=== PATIENT | female | born 1980 | race Caucasian/White ===

== ENCOUNTER 2017-03-05 12:28 | Day surgery (SDC) | payer BC ==
[2017-03-04 14:40] LABS: WBC (NOT ORDERED) (RFLEX) 0 (0-5)
[2017-03-04 15:01] LABS: BASOPHILS 0 %; EOSINOPHILS 0.5 %; EOSINOPHILS ABSOLUTE 0.02 10/3/uL (0.0-0.53); HEMATOCRIT 37.9 % (36.0-48.0); HEMOGLOBIN 12.6 g/dL (12.0-16.0); IMMATURE GRANULOCYTES 0.3 %; IMMATURE GRANULOCYTES ABSOLUTE 0.01 10/3/uL (0.0-0.11); LYMPHOCYTES 22.1 %; LYMPHOCYTES ABSOLUTE 0.83 10/3/uL (0.67-4.30); MEAN CORPUS HGB CONC 33.2 g/dL (32.0-36.0); MEAN CORPUSCULAR HEMOGLOB 28.4 pg (26.0-34.0); MEAN CORPUSCULAR VOLUME 85.4 fL (80-100); MONOCYTES 15.2 %; MONOCYTES ABSOLUTE 0.57 10/3/uL (0.21-1.20); NEUTROPHILS 61.9 %; NEUTROPHILS ABSOLUTE 2.33 10/3/uL (2.02-8.40); PLATELET COUNT 223 10/3/uL (150-400); RBC DISTRIBUTION WIDTH 13.1 % (12.0-16.0); RED CELL COUNT 4.44 10/6/uL (4.0-5.6)
[2017-03-04 15:05] LABS: MANUAL DIFF NO %; WHITE BLOOD CELLS 3.8 10/3/uL (4.5-10.5)
[2017-03-04 16:33] LABS: ASCORBIC ACID (UR NOT ORDER) NEG (NEG); BILIRUBIN, URINE NEGATIVE (NEG); KETONE, URINE NEGATIVE (NEG); LEUKOCYTE ESTERASE(NOT OR NEG (NEG)
--- NOTE | ~2017-03-05 | OP ---
Record Of Operation [facility] [address] [place]. [address] NAME: PEBBLES WRIGHT : [birth year] STATUS : [facility]#: [id number] AGE: 36 ADM/REG DATE : 03/05/17 MR#: [id number] REPORT SERV DATE: 03/19/17 DICTATED BY: ALMA ROSA HOFFMAN DATE: 03/09/17 REPORT STATUS : Draft TRANSCRIBED BY: MODL DATE: 03/09/17 DATE OF PROCEDURE: 03/05/2017 PREOPERATIVE DIAGNOSIS: Dysmenorrhea, pelvic pain. OPERATION PERFORMED: Diagnostic laparoscopy, attempted dilation and curettage. SURGEON: Alma Rosa Hoffman D.O. FINAL DIAGNOSES: Pelvic congestion syndrome, cervical stenosis. DESCRIPTION OF OPERATION PERFORMED: The patient was taken to the operating room, prepped and draped in usual manner. General type anesthesia was used. Both abdominal and vaginal prep was performed. The cervix was grasped with a tenaculum. Attempt was made to dilate the cervix without puncturing the uterus. The cervical dilatation was not accomplished. The acorn was attached to the cervix. The abdomen was filled with 3 L of CO2. Laparoscope was introduced with good visualization of the pelvic cavity. The ovaries were normal. The fallopian tubes were normal. I felt no endometriosis in the cul-de-sac. There are large veins around the uterus on both sides of the broad ligaments compatible with the pelvic congestion syndrome. No other procedures were performed. The gas was allowed to escape. The skin was closed with 4-0 Monocryl in interrupted fashion. Marcaine was infiltrated for postoperative pain relief. The acorn and tenaculum were removed. The patient was taken to recovery room in satisfactory condition. ESTIMATED BLOOD LOSS: 10 mL. FREDA/EVELYN Alma Rosa Hoffman D.O. / [id number] CC: Alma Rosa Hoffman D.O.
[~2017-03-05 12:28] MED LIST: ADVIL PO; NORCO1 TA2 PO; SINUS MEDICATION; T PO; XANAX1 MG PO
[2017-03-05 12:52] LABS: ASCORBIC ACID (UR NOT ORDER) NEG (NEG); BILIRUBIN, URINE NEGATIVE (NEG); KETONE, URINE TRACE MG/DL (NEG); LEUKOCYTE ESTERASE(NOT OR SMALL (NEG); WBC (NOT ORDERED) (RFLEX) 8 (0-5)
== END 2017-03-05 18:23 | disposition home or self-care (01) ==
LOC: SDC 12:28
PROVIDERS: Obstetrics & Gynecology
PROC: 0WJP4ZZ Inspection of Gastrointestinal Tract, Percutaneous Endoscopic Approach (ICD-10-PCS; principal; 2017-03-05 13:45)
DX: N88.2 Stricture and stenosis of cervix uteri (principal); F41.9 Anxiety disorder, unspecified; D72.0 Genetic anomalies of leukocytes; Z88.5 Allergy status to narcotic agent; Z98.890 Other specified postprocedural states
CPT/HCPCS: 81001; 84703; 85025; 87077; 87086; 87186; A9270-GY; J1170; J1885; J2250; J2405; J2710; J3010